=== PATIENT | female | born 1955 | race Caucasian/White ===

== ENCOUNTER 2017-03-31 02:08 | Inpatient (IN) ==
[~2017-03-31 02:08] MED LIST: Naloxone 0.4 MG/ML INJ IVP PRN
[2017-03-31] MEDS ORDERED: *HR* HYDROcodone/Acet 5/325 mg TABLET PO ONE (02:12)
--- NOTE | 2017-03-31 02:14 | Internal Med History&Physical ---
Date of Encounter: 03/31/17 Time of Encounter: 02:14 Assessment and Plan (1) Acute renal failure Current visit: Yes Status: Acute Possibly pre-renal due to volume depletion versus obstructive uropathy. Treat with Intravenous fluid infusion. Renal ultrasound scan. Avoid nephrotoxics. Consider Nephrology consult. Qualifiers: Acute renal failure type: unspecified Qualified Code(s): N17.9 - Acute kidney failure, unspecified (2) UTI (urinary tract infection) Current visit: Yes Status: Acute Urine cultures pending. Emperically treat with ceftriaxone Qualifiers: Urinary tract infection type: site unspecified Hematuria presence: without hematuria Qualified Code(s): N39.0 - Urinary tract infection, site not specified (3) Visual hallucinations Current visit: Yes Status: Acute Could be secondary to UTI / delirium. Will obtain CT head. Monitor (4) Nodule of apex of right lung Current visit: Yes Status: Acute CXR reports Right lung apical nodule. Will request CT chest for further evaluation. Consider pulmonary consult, based on CT chest result. (5) Recurrent falls Current visit: Yes Status: Acute Suspect is due to orthostatic hypotension. Check orthostatic vitals. PT consult (6) DVT prophylaxis Current visit: Yes Status: Acute subcutaneous heparin Internal Medicine - H&P: HPI Chief complaint: Visual hallucinations Admitted From: Emergency Dept Plans for Post Hospital Care: Home History of present illness: Ms. Mkceon is a 61 year old female with Past medical history significant for COPD, GERD, hepatitis (Hepatitis C), hyperlipidemia, hypertension. She was taken to the ER at [facility], with visual hallucinations. She reports seeing he kids in the kitchen and could not make them leave and called the police. Apparently none were seen. Hence she was taken to the ER for evaluation, where she was noted to have creatinine of 4.22. She is admitted to the hospitalist service for further management. She reports multiple falls for a few months and apparently worse now. She feels dizzy and she stands up or tries to walk short distances. She falls but denies LOC. Denies significant injuries or pain at this time. She denies chest pain, shortness of breath, fever, chills, abdominal pain, dysuria, hematuria. She reports that she feels full in the bladder but cannot pass urine. Denies changes to bowel habits. Denies headache or weakness of the extremities. Past Med Surg Social Fam HX - Past Medical History Medical history: arthritis, asthma, COPD, GERD, hepatitis, hyperlipidemia, hypertension, other Psychiatric history: anxiety - Past Surgical History Surgical History: appendectomy, , cholecystectomy, hysterectomy, other - Social History Smoking Status: Current every day smoker Smokeless Tobacco Status: No Alcohol use: occasionally Drug use: none - Family History Mother Name: Kimmie Cline Age: 78 Family Member Ethnicity: Non- Hx Family Cardiac Disorders: Yes Hx Family Respiratory Disorders: Yes Hx Family Cancer: No Hx Family GI Disorders: Yes Hx Family Genitourinary Disorders: Yes Hx Family Endocrine Disorder: No Hx Family Musculoskeletal Disorders: No Hx Family Neuromuscular Disorders: No Hx Family Neurologic Disorders: No Hx Family HEENT Disorders: No Hx Family Autoimmune Disorders: No Hx Family Reproductive Disorders: No Hx Family Psychosocial Disorders: No Hx Family Medical Disorders: No Internal Medicine - H&P: Meds Fenofibrate [Lofibra] 160 mg PO DAILY 03/30/17 [History] LORazepam [Ativan] 1 mg PO QID 03/30/17 [History] Metoprolol [Lopressor] 100 mg PO DAILY 03/30/17 [History] Oxybutynin [Ditropan] 5 mg PO DAILY 03/30/17 [History] Pregabalin [Lyrica] 200 mg PO BID 03/30/17 [History] Allergies butorphanol [From Stadol] Allergy (Verified 01/12/17 11:13) Rash All Systems PM: A 10-system review of systems was performed and is negative for pertinent findings except as documented above in the HPI. - Constitutional Vitals: Temp Pulse Resp BP Pulse Ox 97.4 F L 63 15 123/71 96 03/31/17 01:38 03/31/17 01:38 03/31/17 01:38 03/31/17 01:38 03/31/17 01:38 Exam: General: Not in acute distress at the time of my evaluation HEENT: Oral mucosa is dry. No conjunctival palor or scleral icterus Neck: No obvious neck swellings Lungs: Left basal crackles present Cardiac: Regular rate and rhythm. No significant murmurs Abdomen: Soft, mild suprapubic tenderness. Bowel sounds present Genitourinary: No higginbotham catheter Neurological: Alert and oriented. No gross localizing deficits Psych: Not aggressive or agitated Extremities: no significant leg edema Skin: No generalized rash Internal Med - H&P Results - Labs CBC & Chem 7: 03/31/17 04:20 03/31/17 04:20 - Impressions ITS Impressions Chest X-Ray 03/31/17 02:44 IMPRESSION: Right apical opacity measuring 3.4 x 2.7 cm which needs further investigation. Minimal atelectatic changes left base. RECOMMENDATION: Chest CT to investigate the right upper lobe opacity. D/ /31/2017 07:20:39 Nela Severino MD / tom Interpreting Provider: Nela Severino MD
[2017-03-31] MEDS: 0.9 % Sodium Chloride 1,000 ML IVC SCH ×3 (03:12→20:09)
[2017-03-31] MEDS: Nicotine 14 MG PATCH.TD24 TD SCH (03:12)
[2017-03-31 04:45] LABS: Bilirubin,Urine Negative (Negative); Blood,Urine Negative (Negative); Clarity,Urine Clear (Clear); Glucose,Urine (UA) Normal (Normal); Ketones,Urine Negative (Negative); Leukocyte Esterase,Urine Small (Negative); Nitrite,Urine Positive (Negative); PH,Urine 5.5 pH Units (5.0-8.0); Protein,Urine Negative (Neg-Trace); Specific Gravity,Urine 1.012 (1.010-1.025); Urobilinogen,Urine Normal (Normal)
[2017-03-31 04:46] LABS: Bacteria,Urine None Seen per hpf (None-Few); Hyaline Casts,Urine None Seen per lpf (None-Few); Squamous Epithelial Cell,Urine Moderate per lpf (None-Few); WBC,Urine 0-3 per hpf (0-3)
[2017-03-31 04:47] LABS: Color,Urine Dark Yellow (Yellow)
[2017-03-31 04:55] LABS: Basophils # 0.1 K/mcL (0.0-0.2); Basophils % 0.8 %; Eosinophils # 0.3 K/mcL (0.0-0.6); Eosinophils % 3.5 %; Hematocrit 31.4 % (35.3-44.9); Hemoglobin 10.4 g/dL (11.5-15.4); Immature Granulocytes % 0.9 % (0-4); Lymphocytes # 3.2 K/mcL (0.6-4.6); Lymphocytes % 32.9 %; Mean Corpuscular HGB Conc 33.1 g/dL (31.6-35.5); Mean Corpuscular Hemoglobin 30.1 pg (28.0-33.3); Mean Platelet Volume 12.2 fL (9.4-12.4); Monocytes % 10.6 %; Neutrophils # 4.9 K/mcL (1.6-8.9); Platelet Count 263 K/mcL (140-400); Red Blood Count 3.45 M/mcL (3.82-4.97); Red Cell Distribution Width 13.2 % (11.5-14.5); Segmented Neutrophils % 51.3 %
[2017-03-31 04:57] LABS: Amphetamine Screen,Urine Negative ng/mL (Cutoff=1000); Barbiturate Screen,Urine Negative ng/mL (Cutoff=200); Benzodiazepines Screen,Urine Positive ng/mL (Cutoff=200); Cannabinoid Screen,Urine Negative ng/mL (Cutoff = 50); Cocaine Screen,Urine Negative ng/mL (Cutoff= 300); Opiate Screen,Urine Negative ng/mL (Cutoff=300); Phencyclidine Screen,Urine Negative ng/mL (Cutoff=25)
[2017-03-31 05:15] LABS: Calcium 8.8 mg/dL (8.6-10.8); Magnesium 1.7 mg/dL (1.6-2.6); Phosphorous 4.2 mg/dL (2.3-4.7); Potassium 3.2 mEq/L (3.5-4.5)
[2017-03-31] MEDS: *HR* Heparin 5,000 UNIT/ML VIAL SQ SCH ×3 (05:42→21:46)
--- NOTE | 2017-03-31 16:04 | Event Note ---
Date of Encounter: 03/31/17 Time of Encounter: 16:00 Patient seen and examined at bedside. Resting in bed. Admitted for confused mental status, UTI, ANNAMARIA. Found to have a RUL opacity for which CT chest is ordered for further evaluation. Mental status is improved, no hallucinations reported at this time dysuria resolved at this time renal function improving renal US noted and not acute pathology reported. will follow up on CT chest and head continue IV fluids noted to be hypotensive, BP improved but still low will hold antihypertensives at this time continue to closely monitor. Noted to be hypokalemic: K supplemented
[2017-03-31] MEDS: Pregabalin 75 MG CAPSULE PO SCH (16:10)
[2017-04-01 05:00] LABS: Basophils % 0.4 %; Eosinophils # 0.2 K/mcL (0.0-0.6); Eosinophils % 2.5 %; Hematocrit 31.4 % (35.3-44.9); Hemoglobin 10.5 g/dL (11.5-15.4); Lymphocytes # 2.5 K/mcL (0.6-4.6); Lymphocytes % 27.4 %; Mean Corpuscular HGB Conc 33.4 g/dL (31.6-35.5); Mean Corpuscular Hemoglobin 29.5 pg (28.0-33.3); Mean Corpuscular Volume 88.2 fL (83.0-100.0); Mean Platelet Volume 12.4 fL (9.4-12.4); Monocytes # 0.9 K/mcL (0.0-1.3); Monocytes % 10.1 %; Neutrophils # 5.3 K/mcL (1.6-8.9); Platelet Count 316 K/mcL (140-400); Red Blood Count 3.56 M/mcL (3.82-4.97); Red Cell Distribution Width 13.1 % (11.5-14.5); Segmented Neutrophils % 58.6 %
[2017-04-01 05:18] LABS: Calcium 8.8 mg/dL (8.6-10.8); Magnesium 1.6 mg/dL (1.6-2.6); Phosphorous 2.8 mg/dL (2.3-4.7); Potassium 3.8 mEq/L (3.5-4.5)
[2017-04-01] MEDS: *HR* Heparin 5,000 UNIT/ML VIAL SQ SCH ×3 (05:54→22:48)
[2017-04-01] MEDS: Fenofibrate 54 MG TABLET PO SCH (09:17)
[2017-04-01] MEDS: Nicotine 14 MG PATCH.TD24 TD SCH (09:17)
[2017-04-01] MEDS: Pregabalin 75 MG CAPSULE PO SCH (09:17)
--- NOTE | 2017-04-01 13:48 | Internal Med Progress Note ---
Date of Encounter: 04/01/17 Time of Encounter: 12:05 - Assessment and plan (1) UTI (urinary tract infection) Current Visit: Yes Status: Acute Assessment and plan: Clinically improving Will continue abx for a total of 5 days. mental status AAO x 3 with resolution of hallucinations Qualifiers: Urinary tract infection type: site unspecified Hematuria presence: without hematuria Qualified Code(s): N39.0 - Urinary tract infection, site not specified (2) Acute kidney injury Current Visit: Yes Status: Acute Assessment and plan: Renal function improving home meds revaluated and adjusted according to renal function renal US negative for any acute pathology continue to monitor IV fluids (3) COPD (chronic obstructive pulmonary disease) Current Visit: Yes Status: Acute Assessment and plan: Not in acute exacerbation continue bronchodilator support as needed Qualifiers: COPD type: unspecified COPD Qualified Code(s): J44.9 - Chronic obstructive pulmonary disease, unspecified (4) HTN (hypertension) Current Visit: Yes Status: Acute Assessment and plan: Noted to be hypotensive upon arrival BP within acceptable range despite holding home medications continue to closely monitor will restart home meds as needed Qualifiers: Hypertension type: essential hypertension Qualified Code(s): I10 - Essential (primary) hypertension (5) Smoker Current Visit: Yes Status: Acute Assessment and plan: smoking cessation counseling provided pt not ready to quit at this time nicotine replacement therapy provided (6) DVT prophylaxis Current Visit: Yes Status: Acute Assessment and plan: Heparin SQ (7) Nodule of apex of right lung Current Visit: Yes Status: Acute Assessment and plan: CT chest noted, clinically asymptomatic at this time, pt will need further evaluation as outpatient - Subjective Interval history: Patient seen and examined at bedside. Resting comfortably in bed. AAO x 3. Appears to have social issues at home, but denies any discomfort at this time. - Constitutional Vitals: Temp Pulse Resp BP Pulse Ox 98.5 F 71 16 130/73 96 04/01/17 11:56 04/01/17 11:56 04/01/17 11:56 04/01/17 11:56 04/01/17 11:56 General appearance: Present: A&O X 3, no acute distress - Head Head exam: Present: atraumatic, normocephalic - Eye Eye exam: Present: normal appearance, conjuntiva pink, sclera anicteric - Respiratory Respiratory exam: Present: CTAB. Absent: accessory muscle use, rales, rhonchi, wheezes - Cardiovascular Cardiovascular exam: Present: RRR, +S1, +S2. Absent: diastolic murmur, gallop, rubs, systolic murmur - GI/Abdominal GI/Abdominal exam: Present: normal bowel sounds, soft, no peritoneal signs. Absent: distended, tenderness - Extremities Exam Extremities exam: Present: warm, radial pulses palpable and symetrical. Absent : calf tenderness, cyanotic, pedal edema - Neurological Exam Neurological exam: Present: alert, oriented X3 - Psychiatric Psychiatric exam: Present: normal affect, normal mood Internal Medicine: Result - Labs CBC & Chem 7: 04/01/17 03:42 04/01/17 03:42 Labs: Short CBC 04/01/17 Range/Units 03:42 WBC 9.1 (4.3-11.1) K/mcL Hgb 10.5 L (11.5-15.4) g/dL Hct 31.4 L (35.3-44.9) % Plt Count 316 (140-400) K/mcL Neutrophils # 5.3 (1.6-8.9) K/mcL BMP 04/01/17 03:42 Sodium 139 Potassium 3.8 Chloride 107 Carbon Dioxide 22 BUN 41 H Creatinine 2.52 H Glucose 84 Calcium 8.8 - Impressions Impressions Retroperitoneum Ultrasound 03/31/17 15:00 IMPRESSION: Asymmetric right renal atrophy. Otherwise unremarkable bilateral renal ultrasound with no obstruction. D/ / Yoel Vazquez MD / Yoel Vazquez MD Interpreting Provider: Yoel Vazquez MD Chest CT 03/31/17 15:30 IMPRESSION: 1. Ovoid masslike lesion at the right lung apex, which measures 2.6 x 2.1 x 2.8 cm. There are mild surrounding ground-glass opacities. The differential includes primary lung neoplasm versus atypical infection including fungal etiologies. Further evaluation with close radiographic follow-up versus PET-CT or biopsy should be considered. 2. No evidence of mediastinal lymphadenopathy. Nonspecific 9 mm precarinal lymph node is noted. 3. Coronary atherosclerosis. D/ / 03/31/2017 16:27:34 Odin Han MD / darryn Interpreting Provider: Odin Han MD Head CT 03/31/17 15:30 IMPRESSION: No acute intracranial abnormality. D/ / Damien Crowder MD / Damien Crowder MD Interpreting Provider: Damien Crowder MD Consult Discharge Plan - Plan Referrals: NO,PCP [Primary Care Provider] -
[2017-04-01] MEDS ORDERED: *HR* LORazepam 1 MG TABLET PO SCH (14:12)
[2017-04-01] MEDS: *HR* LORazepam 1 MG TABLET PO PRN ×2 (14:29→20:26)
[2017-04-01] MEDS: 0.9 % Sodium Chloride 1,000 ML IVC SCH ×2 (18:52→23:00)
[2017-04-02] MEDS: *HR* LORazepam 1 MG TABLET PO PRN ×2 (01:23→10:27)
[2017-04-02 03:54] VITALS: BP 148/74
[2017-04-02] MEDS: *HR* Heparin 5,000 UNIT/ML VIAL SQ SCH (05:56)
[2017-04-02 05:59] LABS: Basophils % 0.4 %; Eosinophils # 0.2 K/mcL (0.0-0.6); Eosinophils % 1.9 %; Hemoglobin 10.5 g/dL (11.5-15.4); Immature Granulocytes % 1.3 % (0-4); Lymphocytes # 2.4 K/mcL (0.6-4.6); Lymphocytes % 25.9 %; Mean Corpuscular HGB Conc 33.9 g/dL (31.6-35.5); Mean Corpuscular Hemoglobin 30.4 pg (28.0-33.3); Mean Corpuscular Volume 89.9 fL (83.0-100.0); Mean Platelet Volume 11.9 fL (9.4-12.4); Monocytes # 0.8 K/mcL (0.0-1.3); Monocytes % 8.5 %; Neutrophils # 5.8 K/mcL (1.6-8.9); Platelet Count 273 K/mcL (140-400); Red Blood Count 3.45 M/mcL (3.82-4.97); Red Cell Distribution Width 13.6 % (11.5-14.5)
[2017-04-02 06:15] LABS: Calcium 8.2 mg/dL (8.6-10.8); Magnesium 1.2 mg/dL (1.6-2.6); Potassium 3.5 mEq/L (3.5-4.5)
[2017-04-02] MEDS: 0.9 % Sodium Chloride 1,000 ML IVC SCH (08:03)
[2017-04-02] MEDS: Nicotine 14 MG PATCH.TD24 TD SCH (08:03)
[2017-04-02] MEDS: Pregabalin 75 MG CAPSULE PO SCH (08:04)
[2017-04-02] MEDS: Fenofibrate 54 MG TABLET PO SCH (08:04)
[2017-04-02] MEDS ORDERED: Magnesium Oxide 400 MG TABLET PO SCH (09:00)
[2017-04-02] MEDS ORDERED: amLODIPine 5 MG TABLET PO SCH (09:00)
--- NOTE | 2017-04-02 10:33 | Discharge Summary ---
Date of Encounter: 04/02/17 Time of Encounter: 09:15 - Discharge Diagnosis (1) UTI (urinary tract infection) Priority: Primary Status: Acute Qualifiers: Urinary tract infection type: site unspecified Hematuria presence: without hematuria Qualified Code(s): N39.0 - Urinary tract infection, site not specified (2) Acute kidney injury Priority: Secondary Status: Chronic (3) COPD (chronic obstructive pulmonary disease) Priority: Secondary Status: Chronic Qualifiers: COPD type: unspecified COPD Qualified Code(s): J44.9 - Chronic obstructive pulmonary disease, unspecified (4) HTN (hypertension) Priority: Secondary Status: Chronic Qualifiers: Hypertension type: essential hypertension Qualified Code(s): I10 - Essential (primary) hypertension (5) Smoker Priority: Secondary Status: Chronic (6) DVT prophylaxis Priority: Secondary Status: Acute (7) Nodule of apex of right lung Priority: Secondary Status: Chronic - Discharge Medications Prescriptions: Ciprofloxacin/Ciprofloxa HCl [Cipro Xr 1,000 mg Tablet] 1,000 mg PO DAILY #2 tbmp.24hr Home Medications: Fenofibrate [Lofibra] 160 mg PO DAILY 03/30/17 [History] LORazepam [Ativan] 1 mg PO QID 03/30/17 [History] Oxybutynin [Ditropan] 5 mg PO DAILY 03/30/17 [History] Pregabalin [Lyrica] 200 mg PO BID 03/30/17 [History] Albuterol Neb [Proventil Neb] 2.5 mg IH Q4HR PRN 03/31/17 [History] Albuterol Sulfate [Proair Hfa] 2 puff IH Q4H PRN 03/31/17 [History] Amlodipine [Norvasc] 5 mg PO DAILY 03/31/17 [History] Calcium Carbonate/Vitamin D3 [Calcium 250+D Tablet] 1 tab PO DAILY 03/31/17 [ History] Cyclobenzaprine [Flexeril] 10 mg PO BID 03/31/17 [History] Escitalopram [Lexapro] 20 mg PO DAILY 03/31/17 [History] Labetalol HCl 300 mg PO BID 03/31/17 [History] Lisinopril/Hydrochlorothiazide [Zestoretic 20-12.5 mg Tablet] 1 tab PO BID 03/31 [History] Loratadine [Allergy Relief] 10 mg PO DAILY 03/31/17 [History] Mirtazapine [Remeron] 45 mg PO DAILY 03/31/17 [History] Montelukast [Singulair] 10 mg PO QPM 03/31/17 [History] Pilocarpine HCl [Salagen] 5 mg PO TID 03/31/17 [History] Ciprofloxacin/Ciprofloxa HCl [Cipro Xr 1,000 mg Tablet] 1,000 mg PO DAILY #2 tbmp.24hr 04/02/17 [Rx] Allergies/Adverse Reactions: Allergies butorphanol [From Stadol] Allergy (Verified 01/12/17 11:13) Rash Procedures/tests Complete & Pending: Procedures Performed prior 72 hours Category Date Time Status CT chest w/o contrast [CT chest wo con] [CT] Routine Cat Scan 03/31/17 15:[address] head/brain wo con [CT] Routine Cat Scan 03/31/17 15:30 Completed retroperitoneal ultrasound - limited [US Exams 03/31/17 15:00 Completed retroperitoneal limited] [US] Routine EKG [ECG 12 lead ECG] [ECG] Routine Y 03/31/17 08:05 Ordered Date of admission: 03/31/17 02:08 Primary care physician: PCP NO Consults: 03/31/17 02:12 PT [Consult to Physical Therapy] [CONS] Routine Comment: Evaluate, develop and implement POC Reason for Consult: Falls at home Discharging clinician: Moni Barlow Anticipated date of discharge: 04/02/17 - Patient Status Disposition: Home, Self-Care Condition: Good Functional capacity at discharge: independent ambulation Overall status at discharge: patient is back to baseline - Discharge Instructions Follow Up With: NO,PCP [Primary Care Provider] - Additional Instructions: Please follow up with your primary care physician within five days after your discharge from the hospital. Please continue oral antibiotics as prescribed. please closely monitor your blood pressure at home. Hold your home blood pressure medications (Labetalol and Hydrochlorothiazide/Lisinopril) if your SBP< 120. Please inform your primary care physician about your CT chest findings and they will do further work up. Please follow up with pulmonology in regards to your CT chest findings. Resume your other home medications as prescribed by your primary care physician. - Diet and Activity Activity: resume usual activities as tolerated Diet: low salt diet Hospital course: Ms. Mckeon is a 61 year old female with PMH of COPD, GERD, hepatitis, hyperlipidemia, hypertension who was transferred from [facility] for management of change in mental status with visual hallucinations. Patient was further admitted for urinary tract infection and acute kidney injury. Patient was started on IV fluids, and IV antibiotics. Patient's mental status improved with complete resolution of hallucinations. She was also found to have right upper lobe nodule and further CAT scan was obtained. Patient remained clinically asymptomatic without any fever, cough, or any reported history of weight loss due to which she will obtain further workup for this new imaging finding as an outpatient. Currently she is hemodynamically stable and mental status at baseline. 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 - Time Spent with Patient Total time spent providing and/or coordinating discharge services: Less than 30 minutes - Constitutional Vitals: Temp Pulse Resp BP Pulse Ox 98.2 F 88 18 148/74 94 04/02/17 03:53 04/02/17 03:53 04/02/17 03:53 04/02/17 03:53 04/02/17 03:53 General appearance: Present: A&O X 3, no acute distress - Head Head exam: Present: atraumatic, normocephalic - Eye Eye exam: Present: normal appearance, conjuntiva pink, sclera anicteric - Respiratory Respiratory exam: Present: CTAB. Absent: accessory muscle use, rales, rhonchi, wheezes - Cardiovascular Cardiovascular exam: Present: RRR, +S1, +S2. Absent: diastolic murmur, gallop, rubs, systolic murmur - GI/Abdominal GI/Abdominal exam: Present: normal bowel sounds, soft, no peritoneal signs. Absent: distended, tenderness - Extremities Exam Extremities exam: Present: warm, radial pulses palpable and symetrical. Absent : calf tenderness, cyanotic, pedal edema - Neurological Exam Neurological exam: Present: alert, oriented X3 - Psychiatric Psychiatric exam: Present: normal affect, normal mood
== END 2017-04-02 13:25 | disposition home or self-care (01) | DRG 469 ==
LOC: 2ANU
PROVIDERS: ADMIT Internal Medicine; ATTEND Internal Medicine

== ENCOUNTER 2022-08-14 21:11 | Inpatient (IN) ==
[2022-08-14] MEDS ORDERED: Naloxone 0.4 MG/ML INJ IVP PRN (23:36)
[2022-08-15] MEDS ORDERED: *HR* LORazepam 1 MG TABLET PO PRN ×3 (00:10)
[2022-08-15] MEDS ORDERED: Naloxone 0.4 MG/ML INJ IVP PRN (00:53)
[2022-08-15 01:54] LABS: Creatinine,Urine 37 mg/dL
[2022-08-15 02:02] LABS: Sodium, Urine < 10.0 mEq/L
[2022-08-15 02:58] LABS: ABG Base Excess 0 mEq/L (-2 to 3); ABG HCO3 25 mEq/L (21-27); ABG Oxygen Saturation 94 % (95-98); ABG PCO2 40 mmHg (35-45); ABG PH 7.41 pH Units (7.32-7.45); ABG PO2 68 mmHg (85-104); ABG TCO2 26 mEq/L (20-26); Blood Gas Modality BiLevel; Blood Gas Pressure Support 6 cm H2O
[2022-08-15 03:09] LABS: Adenovirus Not Detected (Not Detect); Bordetella Pertussis Not Detected (Not Detect); Chlamydophila pneumoniae Not Detected (Not Detect); Coronavirus 229E Not Detected (Not Detect); Coronavirus HKU1 Not Detected (Not Detect); Coronavirus NL63 Not Detected (Not Detect); Coronavirus OC43 Not Detected (Not Detect); Human Metapneumovirus Not Detected (Not Detect); Human Rhinovirus/Enterovirus Not Detected (Not Detect); Influenza A Subtype 2009 H1 Not Detected (Not Detect); Influenza B Not Detected (Not Detect); Mycoplasma pneumoniae Not Detected (Not Detect); Parainfluenza Virus 1 Not Detected (Not Detect); Parainfluenza Virus 2 Not Detected (Not Detect); Parainfluenza Virus 3 Not Detected (Not Detect); Parainfluenza Virus 4 Not Detected (Not Detect); Respiratory Syncytial Virus Not Detected (Not Detect); SARS-CoV-2 Not Detected (Not Detect)
[2022-08-15] MEDS ORDERED: *HR* Labetalol 20 MG/4 ML SYRINGE IVP ONE (03:21)
[2022-08-15 03:31] LABS: Basophils % 0.1 %; Eosinophils % 0.1 %; Hematocrit 29.1 % (35.3-44.9); Hemoglobin 9.7 g/dL (11.5-15.4); Immature Granulocytes % 0.7 % (0-4); Lymphocytes # 1.5 K/mcL (0.6-4.6); Lymphocytes % 7.4 %; Mean Corpuscular HGB Conc 33.3 g/dL (31.6-35.5); Mean Corpuscular Volume 81.1 fL (83.0-100.0); Mean Platelet Volume 9.3 fL (9.4-12.4); Monocytes # 1.6 K/mcL (0.0-1.3); Monocytes % 8.1 %; Neutrophils # 16.5 K/mcL (1.6-8.9); Platelet Count 349 K/mcL (140-400); Red Blood Count 3.59 M/mcL (3.82-4.97); Red Cell Distribution Width 14.8 % (11.5-14.5); Segmented Neutrophils % 83.6 %; White Blood Count 19.7 K/mcL (4.3-11.1)
[2022-08-15] MEDS ORDERED: *HR* Labetalol 20 MG/4 ML SYRINGE IVP PRN (03:34)
[2022-08-15 03:38] LABS: INR 1.1; Prothrombin Time 12.6 Seconds (9.4-12.1)
[2022-08-15 03:40] LABS: Activated Partial Thrombo Time 46.7 Seconds (26.0-36.0)
[2022-08-15] MEDS ORDERED: Iopamidol - 370 500 ML MLS IVP ONE ×2 (03:41)
[2022-08-15 03:48] LABS: Iron < 10 mcg/dL (50-170); Transferrin 197 mg/dL (203-362)
[2022-08-15 03:50] LABS: Albumin 3.1 g/dL (3.5-5.7); Albumin/Globulin Ratio 1.2 (1.1-2.2); Bilirubin,Total 0.5 mg/dL (0.3-1.0); Calcium 8.1 mg/dL (8.6-10.3); Globulin 2.6 g/dL (2.4-3.5); Magnesium 1.8 mg/dL (1.6-2.6); Potassium 3.7 mEq/L (3.5-5.1); Total Protein 5.7 g/dL (6.4-8.9)
[2022-08-15] MEDS ORDERED: *HR* Heparin 5,000 UNIT/ML VIAL IVP PRN (03:55)
[2022-08-15] MEDS ORDERED: *HR* Heparin 5,000 UNIT/ML VIAL IVP ONE (03:55)
[2022-08-15] MEDS: Morphine Sulfate 2 MG/ML SYRINGE IVP PRN (03:56)
[2022-08-15] MEDS: Ipratropium/Albuterol Neb 3 ML IH SCH ×6 (04:14→21:33)
[2022-08-15] MEDS ORDERED: 0.9 % Sodium Chloride 1,000 ML IVC SCH (05:00)
[2022-08-15] MEDS ORDERED: *HR* Heparin 5,000 UNIT/ML VIAL SQ SCH (06:00)
[2022-08-15] MEDS: Piperacillin/Tazobactam 3.375 GM in 0.9 % Sodium Chloride Mini Bag 100 ML IVPB SCH ×3 (06:51→19:58)
[2022-08-15] MEDS: Heparin 25,000UNIT/250ML 1/2NS 25,000 UNIT/250 ML IV.SOLN IVC SCH (07:50)
[2022-08-15] MEDS: amLODIPine 5 MG TABLET PO SCH (08:48)
[2022-08-15] MEDS: Metoprolol XL (24 HR) Succ 50 MG TAB.ER.24H PO SCH (08:49)
[2022-08-15] MEDS: Furosemide 40 MG/4 ML VIAL IVP SCH (08:49)
[2022-08-15] MEDS: Folic Acid 1 MG TABLET PO SCH (08:49)
[2022-08-15] MEDS: Vitamin B Complex/Vit C/Vit E 1 EACH TABLET PO SCH (08:49)
[2022-08-15] MEDS: Thiamine (B-1) 100 MG TABLET PO SCH (08:49)
[2022-08-15] MEDS ORDERED: Furosemide 40 MG/4 ML VIAL IVP SCH (09:00)
[2022-08-15] MEDS ORDERED: lisinopriL 20 MG TABLET PO SCH (09:00)
[2022-08-15] MEDS: *HR* LORazepam 2 MG/ML VIAL IVP PRN (19:14)
[2022-08-15] MEDS ORDERED: *HR* LORazepam 2 MG/ML VIAL IVP ONE (19:38)
[2022-08-15] MEDS ORDERED: Dexmedetomidine HCl 400 MCG/100 ML MLS IVC ONE (19:59)
[2022-08-15] MEDS: Dexmedetomidine HCl 400 MCG/100 ML MLS IVC SCH ×2 (20:03→21:05)
[2022-08-15 20:36] LABS: ABG Base Excess 0 mEq/L (-2 to 3); ABG HCO3 25 mEq/L (21-27); ABG Oxygen Saturation 93 % (95-98); ABG PCO2 43 mmHg (35-45); ABG PH 7.38 pH Units (7.32-7.45); ABG PO2 68 mmHg (85-104); ABG TCO2 27 mEq/L (20-26); Blood Gas Modality BiLevel; Blood Gas Pressure Support 5 cm H2O
[2022-08-15] MEDS ORDERED: Furosemide 40 MG/4 ML VIAL IVP ONE (20:36)
[2022-08-15] MEDS: *HR* Heparin 5,000 UNIT/ML VIAL IVP PRN (22:26)
[2022-08-16 03:14] LABS: Hematocrit 27.6 % (35.3-44.9); Hemoglobin 9.1 g/dL (11.5-15.4); Mean Corpuscular Volume 81.9 fL (83.0-100.0); Mean Platelet Volume 9.7 fL (9.4-12.4); Platelet Count 341 K/mcL (140-400); Red Blood Count 3.37 M/mcL (3.82-4.97); Red Cell Distribution Width 15.3 % (11.5-14.5); White Blood Count 19.2 K/mcL (4.3-11.1)
[2022-08-16 03:30] LABS: Calcium 8.5 mg/dL (8.6-10.3); Magnesium 2.1 mg/dL (1.6-2.6); Potassium 3.6 mEq/L (3.5-5.1)
[2022-08-16] MEDS: Piperacillin/Tazobactam 3.375 GM in 0.9 % Sodium Chloride Mini Bag 100 ML IVPB SCH ×3 (03:54→20:55)
[2022-08-16 03:56] LABS: Troponin I 2.24 ng/mL (< 0.04)
[2022-08-16] MEDS: Ipratropium/Albuterol Neb 3 ML IH SCH ×4 (03:59→21:18)
[2022-08-16] MEDS: Dexmedetomidine HCl 400 MCG/100 ML MLS IVC SCH ×2 (05:44→17:00)
[2022-08-16] MEDS: *HR* LORazepam 2 MG/ML VIAL IVP SCH ×3 (06:26→18:05)
[2022-08-16] MEDS: Heparin 25,000UNIT/250ML 1/2NS 25,000 UNIT/250 ML IV.SOLN IVC SCH ×2 (08:40→08:50)
[2022-08-16] MEDS: Furosemide 40 MG/4 ML VIAL IVP SCH ×2 (08:48→16:59)
[2022-08-16] MEDS: *HR* LORazepam 2 MG/ML VIAL IVP PRN ×6 (09:07→22:12)
[2022-08-16] MEDS: Folic Acid 1 MG TABLET PO SCH (10:36)
[2022-08-16] MEDS: Thiamine (B-1) 100 MG TABLET PO SCH (10:36)
[2022-08-16] MEDS: Metoprolol XL (24 HR) Succ 50 MG TAB.ER.24H PO SCH (10:36)
[2022-08-16] MEDS: Vitamin B Complex/Vit C/Vit E 1 EACH TABLET PO SCH (10:36)
[2022-08-16] MEDS: amLODIPine 5 MG TABLET PO SCH (10:36)
[2022-08-16] MEDS: niCARdipine 20 MG/200 ML MLS IVC SCH ×3 (10:51→18:46)
[2022-08-16] MEDS ORDERED: *HR* LORazepam 2 MG/ML VIAL IVP ONE (14:01)
[2022-08-17] MEDS: *HR* LORazepam 2 MG/ML VIAL IVP SCH ×4 (00:06→18:12)
[2022-08-17] MEDS: *HR* Heparin 5,000 UNIT/ML VIAL IVP PRN (00:28)
[2022-08-17] MEDS: *HR* LORazepam 2 MG/ML VIAL IVP PRN ×7 (01:06→21:18)
[2022-08-17] MEDS: Piperacillin/Tazobactam 3.375 GM in 0.9 % Sodium Chloride Mini Bag 100 ML IVPB SCH ×3 (04:03→20:12)
[2022-08-17] MEDS: niCARdipine 20 MG/200 ML MLS IVC SCH ×5 (04:06→23:03)
[2022-08-17] MEDS: Ipratropium/Albuterol Neb 3 ML IH SCH ×4 (04:45→21:23)
[2022-08-17 05:09] LABS: VBG HCO3 27 mEq/L (21-27); VBG PCO2 55 mmHg (41-51); VBG PH 7.31 pH Units (7.32-7.42); VBG PO2 84 mmHg (25-50)
[2022-08-17 05:20] LABS: Hematocrit 26.6 % (35.3-44.9); Hemoglobin 8.4 g/dL (11.5-15.4); Mean Corpuscular HGB Conc 31.6 g/dL (31.6-35.5); Mean Corpuscular Hemoglobin 26.3 pg (28.0-33.3); Mean Corpuscular Volume 83.4 fL (83.0-100.0); Mean Platelet Volume 9.5 fL (9.4-12.4); Platelet Count 359 K/mcL (140-400); Red Blood Count 3.19 M/mcL (3.82-4.97); Red Cell Distribution Width 15.9 % (11.5-14.5); White Blood Count 13.9 K/mcL (4.3-11.1)
[2022-08-17 05:38] LABS: Calcium 8.8 mg/dL (8.6-10.3); Potassium 3.4 mEq/L (3.5-5.1)
[2022-08-17] MEDS: Dexmedetomidine HCl 400 MCG/100 ML MLS IVC SCH ×4 (06:24→21:01)
[2022-08-17] MEDS: Vitamin B Complex/Vit C/Vit E 1 EACH TABLET PO SCH (10:18)
[2022-08-17] MEDS: amLODIPine 5 MG TABLET PO SCH (10:18)
[2022-08-17] MEDS: Thiamine (B-1) 100 MG TABLET PO SCH (10:18)
[2022-08-17] MEDS: Metoprolol XL (24 HR) Succ 50 MG TAB.ER.24H PO SCH (10:18)
[2022-08-17] MEDS: Folic Acid 1 MG TABLET PO SCH (10:18)
[2022-08-17] MEDS: Furosemide 40 MG/4 ML VIAL IVP SCH ×2 (10:43→16:07)
[2022-08-17] MEDS ORDERED: *HR* Dextrose 50 % in Water (Syg) 50 ML SYRINGE IVP PRN (11:35)
[2022-08-17] MEDS: Heparin 25,000UNIT/250ML 1/2NS 25,000 UNIT/250 ML IV.SOLN IVC SCH (11:35)
[2022-08-17] MEDS ORDERED: Dextrose Gel 15 GM/37.5 ML TUBE PO PRN ×2 (11:35)
[2022-08-17] MEDS ORDERED: D5% in Water 1,000 ML IVC PRN (11:35)
[2022-08-17] MEDS: Insulin LISPRO 300 UNITS/3 ML VIAL SUBQ SCH ×2 (15:40→17:30)
[2022-08-17] MEDS: OXcarbazepine 150 MG TABLET PO SCH ×2 (17:28→19:08)
[2022-08-17] MEDS: Budesonide/Formoterol 160/4.5 1 PUFF INH IH SCH (21:24)
[2022-08-18] MEDS: Insulin LISPRO 300 UNITS/3 ML VIAL SUBQ SCH ×4 (00:09→19:49)
[2022-08-18] MEDS: Dexmedetomidine HCl 400 MCG/100 ML MLS IVC SCH ×6 (00:31→19:01)
[2022-08-18] MEDS: niCARdipine 20 MG/200 ML MLS IVC SCH ×8 (02:54→22:32)
[2022-08-18] MEDS: *HR* LORazepam 2 MG/ML VIAL IVP SCH ×4 (02:59→20:49)
[2022-08-18] MEDS: Ipratropium/Albuterol Neb 3 ML IH SCH ×4 (04:31→22:11)
[2022-08-18] MEDS: Piperacillin/Tazobactam 3.375 GM in 0.9 % Sodium Chloride Mini Bag 100 ML IVPB SCH ×3 (05:56→20:48)
[2022-08-18] MEDS: Furosemide 40 MG/4 ML VIAL IVP SCH ×2 (08:08→17:20)
[2022-08-18] MEDS: *HR* LORazepam 2 MG/ML VIAL IVP PRN ×3 (08:09→19:14)
[2022-08-18] MEDS: Vitamin B Complex/Vit C/Vit E 1 EACH TABLET PO SCH (08:37)
[2022-08-18] MEDS: Metoprolol XL (24 HR) Succ 50 MG TAB.ER.24H PO SCH (08:37)
[2022-08-18] MEDS: Cholecalciferol (D-3) 1,000 UNIT (25MCG) TABLET PO SCH (08:37)
[2022-08-18] MEDS: Thiamine (B-1) 100 MG TABLET PO SCH (08:37)
[2022-08-18] MEDS: Folic Acid 1 MG TABLET PO SCH (08:37)
[2022-08-18] MEDS: amLODIPine 5 MG TABLET PO SCH (08:37)
[2022-08-18] MEDS: OXcarbazepine 150 MG TABLET PO SCH ×3 (08:37→19:50)
[2022-08-18] MEDS: Budesonide/Formoterol 160/4.5 1 PUFF INH IH SCH ×2 (09:42→22:11)
[2022-08-18] MEDS: Heparin 25,000UNIT/250ML 1/2NS 25,000 UNIT/250 ML IV.SOLN IVC SCH (11:19)
[2022-08-18 14:13] LABS: VBG HCO3 25 mEq/L (21-27); VBG PCO2 42 mmHg (41-51); VBG PH 7.38 pH Units (7.32-7.42); VBG PO2 96 mmHg (25-50)
[2022-08-18 14:27] LABS: Basophils % 0.4 %; Eosinophils # 0.4 K/mcL (0.0-0.6); Eosinophils % 4.1 %; Hematocrit 25.6 % (35.3-44.9); Hemoglobin 8.1 g/dL (11.5-15.4); Immature Granulocytes % 0.6 % (0-4); Lymphocytes % 21.7 %; Mean Corpuscular HGB Conc 31.6 g/dL (31.6-35.5); Mean Corpuscular Hemoglobin 26.2 pg (28.0-33.3); Mean Corpuscular Volume 82.8 fL (83.0-100.0); Mean Platelet Volume 9.5 fL (9.4-12.4); Monocytes # 1.2 K/mcL (0.0-1.3); Neutrophils # 5.6 K/mcL (1.6-8.9); Platelet Count 354 K/mcL (140-400); Red Blood Count 3.09 M/mcL (3.82-4.97); Segmented Neutrophils % 60.2 %; White Blood Count 9.3 K/mcL (4.3-11.1)
[2022-08-18 15:22] LABS: Calcium 8.9 mg/dL (8.6-10.3); Magnesium 1.9 mg/dL (1.6-2.6); Phosphorous 3.4 mg/dL (2.7-4.5); Potassium 3.2 mEq/L (3.5-5.1)
[2022-08-18] MEDS: *HR* Heparin 5,000 UNIT/ML VIAL SQ SCH (17:21)
[2022-08-19] MEDS: *HR* LORazepam 2 MG/ML VIAL IVP PRN ×3 (00:03→21:37)
[2022-08-19] MEDS: Insulin LISPRO 300 UNITS/3 ML VIAL SUBQ SCH ×4 (00:06→19:14)
[2022-08-19] MEDS: Dexmedetomidine HCl 400 MCG/100 ML MLS IVC SCH ×4 (00:20→18:47)
[2022-08-19] MEDS: niCARdipine 20 MG/200 ML MLS IVC SCH ×5 (01:55→18:36)
[2022-08-19] MEDS: Ipratropium/Albuterol Neb 3 ML IH SCH ×4 (04:29→20:35)
[2022-08-19] MEDS: *HR* LORazepam 2 MG/ML VIAL IVP SCH ×4 (04:56→19:36)
[2022-08-19] MEDS: *HR* Heparin 5,000 UNIT/ML VIAL SQ SCH ×2 (04:56→17:07)
[2022-08-19] MEDS: Piperacillin/Tazobactam 3.375 GM in 0.9 % Sodium Chloride Mini Bag 100 ML IVPB SCH ×3 (04:57→19:37)
[2022-08-19 05:17] LABS: Hematocrit 24.9 % (35.3-44.9); Mean Corpuscular HGB Conc 32.1 g/dL (31.6-35.5); Mean Corpuscular Hemoglobin 26.6 pg (28.0-33.3); Mean Corpuscular Volume 82.7 fL (83.0-100.0); Mean Platelet Volume 9.1 fL (9.4-12.4); Platelet Count 334 K/mcL (140-400); Red Blood Count 3.01 M/mcL (3.82-4.97); Red Cell Distribution Width 15.2 % (11.5-14.5); White Blood Count 8.2 K/mcL (4.3-11.1)
[2022-08-19 05:35] LABS: Calcium 8.7 mg/dL (8.6-10.3); Magnesium 1.9 mg/dL (1.6-2.6); Potassium 3.1 mEq/L (3.5-5.1)
[2022-08-19] MEDS: Furosemide 40 MG/4 ML VIAL IVP SCH (08:16)
[2022-08-19] MEDS: OXcarbazepine 150 MG TABLET PO SCH ×3 (08:18→19:37)
[2022-08-19] MEDS: Folic Acid 1 MG TABLET PO SCH (08:18)
[2022-08-19] MEDS: Thiamine (B-1) 100 MG TABLET PO SCH (08:18)
[2022-08-19] MEDS: Metoprolol XL (24 HR) Succ 50 MG TAB.ER.24H PO SCH (08:18)
[2022-08-19] MEDS: amLODIPine 5 MG TABLET PO SCH (08:18)
[2022-08-19] MEDS: Cholecalciferol (D-3) 1,000 UNIT (25MCG) TABLET PO SCH (08:18)
[2022-08-19] MEDS: Vitamin B Complex/Vit C/Vit E 1 EACH TABLET PO SCH (08:18)
[2022-08-19] MEDS ORDERED: Thiamine (B-1) 200 MG in 0.9 % Sodium Chloride 50 ML IVPB STA (08:58)
[2022-08-19] MEDS: Budesonide/Formoterol 160/4.5 1 PUFF INH IH SCH ×2 (10:43→20:36)
[2022-08-19] MEDS: *HR* Metoprolol 5 MG/5 ML VIAL IVP SCH ×2 (11:30→17:07)
[2022-08-19] MEDS ORDERED: *HR* Labetalol 20 MG/4 ML SYRINGE IVP ONE (20:12)
[2022-08-20] MEDS: *HR* Metoprolol 5 MG/5 ML VIAL IVP SCH ×5 (00:06→23:18)
[2022-08-20] MEDS: Insulin LISPRO 300 UNITS/3 ML VIAL SUBQ SCH ×5 (00:09→23:18)
[2022-08-20] MEDS: Ondansetron ODT 4 MG TAB.RAPDIS SL PRN (01:47)
[2022-08-20] MEDS: niCARdipine 20 MG/200 ML MLS IVC SCH ×6 (02:29→19:41)
[2022-08-20] MEDS: *HR* LORazepam 2 MG/ML VIAL IVP SCH ×2 (02:29→10:14)
[2022-08-20] MEDS: Ipratropium/Albuterol Neb 3 ML IH SCH ×4 (04:11→22:33)
[2022-08-20] MEDS: Piperacillin/Tazobactam 3.375 GM in 0.9 % Sodium Chloride Mini Bag 100 ML IVPB SCH ×3 (04:15→19:40)
[2022-08-20] MEDS: Dexmedetomidine HCl 400 MCG/100 ML MLS IVC SCH ×3 (04:21→17:01)
[2022-08-20 04:56] LABS: Hematocrit 27.2 % (35.3-44.9); Hemoglobin 8.7 g/dL (11.5-15.4); Mean Corpuscular Hemoglobin 26.5 pg (28.0-33.3); Mean Corpuscular Volume 82.9 fL (83.0-100.0); Mean Platelet Volume 9.3 fL (9.4-12.4); Platelet Count 395 K/mcL (140-400); Red Blood Count 3.28 M/mcL (3.82-4.97); Red Cell Distribution Width 15.5 % (11.5-14.5)
[2022-08-20 05:13] LABS: Magnesium 1.9 mg/dL (1.6-2.6); Potassium 3.3 mEq/L (3.5-5.1)
[2022-08-20] MEDS: *HR* Heparin 5,000 UNIT/ML VIAL SQ SCH ×2 (05:54→18:01)
[2022-08-20] MEDS: Thiamine (B-1) 100 MG in 0.9 % Sodium Chloride 50 ML IVPB SCH (08:14)
[2022-08-20] MEDS: Budesonide/Formoterol 160/4.5 1 PUFF INH IH SCH ×2 (09:52→22:33)
[2022-08-20] MEDS: Cholecalciferol (D-3) 1,000 UNIT (25MCG) TABLET PO SCH (10:13)
[2022-08-20] MEDS: amLODIPine 5 MG TABLET PO SCH (10:13)
[2022-08-20] MEDS: OXcarbazepine 150 MG TABLET PO SCH ×3 (10:14→19:40)
[2022-08-20] MEDS: Vitamin B Complex/Vit C/Vit E 1 EACH TABLET PO SCH (10:14)
[2022-08-20] MEDS: Metoprolol XL (24 HR) Succ 50 MG TAB.ER.24H PO SCH (10:14)
[2022-08-20] MEDS: Folic Acid 1 MG TABLET PO SCH (10:14)
[2022-08-20] MEDS ORDERED: Cyanocobalamin (B-12) 1,000 MCG/ML VIAL IM ONE ×2 (10:26→14:45)
[2022-08-20] MEDS: Aspirin 81 MG TAB.CHEW PO SCH (13:54)
[2022-08-20] MEDS: Melatonin 3 MG TABLET PO PRN (19:40)
[2022-08-20] MEDS ORDERED: OLANZapine 10 MG VIAL IM ONE (21:32)
[2022-08-21] MEDS: Dexmedetomidine HCl 400 MCG/100 ML MLS IVC SCH ×2 (02:03→09:53)
[2022-08-21] MEDS: niCARdipine 20 MG/200 ML MLS IVC SCH ×6 (02:07→23:23)
[2022-08-21 02:45] LABS: Hematocrit 26.9 % (35.3-44.9); Hemoglobin 8.4 g/dL (11.5-15.4); Mean Corpuscular HGB Conc 31.2 g/dL (31.6-35.5); Mean Corpuscular Hemoglobin 26.5 pg (28.0-33.3); Mean Corpuscular Volume 84.9 fL (83.0-100.0); Mean Platelet Volume 9.4 fL (9.4-12.4); Platelet Count 372 K/mcL (140-400); Red Blood Count 3.17 M/mcL (3.82-4.97); Red Cell Distribution Width 15.7 % (11.5-14.5); White Blood Count 12.5 K/mcL (4.3-11.1)
[2022-08-21 03:04] LABS: Calcium 8.7 mg/dL (8.6-10.3); Potassium 4.2 mEq/L (3.5-5.1)
[2022-08-21] MEDS: Piperacillin/Tazobactam 3.375 GM in 0.9 % Sodium Chloride Mini Bag 100 ML IVPB SCH ×3 (03:58→19:27)
[2022-08-21] MEDS: Ipratropium/Albuterol Neb 3 ML IH SCH ×4 (04:14→22:51)
[2022-08-21] MEDS: *HR* Metoprolol 5 MG/5 ML VIAL IVP SCH ×4 (05:28→23:25)
[2022-08-21] MEDS: *HR* Heparin 5,000 UNIT/ML VIAL SQ SCH ×2 (05:30→17:13)
[2022-08-21] MEDS: Insulin LISPRO 300 UNITS/3 ML VIAL SUBQ SCH ×3 (06:05→17:13)
[2022-08-21] MEDS: Ondansetron ODT 4 MG TAB.RAPDIS SL PRN (08:35)
[2022-08-21] MEDS: Aspirin 81 MG TAB.CHEW PO SCH (09:53)
[2022-08-21] MEDS: Metoprolol XL (24 HR) Succ 50 MG TAB.ER.24H PO SCH (09:53)
[2022-08-21] MEDS: OXcarbazepine 150 MG TABLET PO SCH ×3 (09:53→19:29)
[2022-08-21] MEDS: amLODIPine 5 MG TABLET PO SCH (09:53)
[2022-08-21] MEDS: Folic Acid 1 MG TABLET PO SCH ×2 (09:54→10:32)
[2022-08-21] MEDS: Vitamin B Complex/Vit C/Vit E 1 EACH TABLET PO SCH ×2 (09:54→10:32)
[2022-08-21] MEDS: Cholecalciferol (D-3) 1,000 UNIT (25MCG) TABLET PO SCH ×2 (09:54→10:32)
[2022-08-21] MEDS: Cyanocobalamin (B-12) 1,000 MCG TABLET PO SCH ×2 (09:54→10:32)
[2022-08-21] MEDS ORDERED: Nicotine 2 MG GUM BC PRN (10:34)
[2022-08-21] MEDS: Budesonide/Formoterol 160/4.5 1 PUFF INH IH SCH ×2 (10:36→22:51)
[2022-08-21] MEDS: Nicotine 21 MG PATCH.TD24 TD SCH (10:55)
[2022-08-21] MEDS: Thiamine (B-1) 100 MG in 0.9 % Sodium Chloride 50 ML IVPB SCH (10:56)
[2022-08-21] MEDS ORDERED: *HR* LORazepam 2 MG/ML VIAL IVP PRN (11:43)
[2022-08-21] MEDS ORDERED: *HR* LORazepam 1 MG TABLET PO PRN ×2 (11:43)
[2022-08-21] MEDS: Acetaminophen 325 MG TABLET PO PRN (19:28)
[2022-08-21] MEDS: Melatonin 3 MG TABLET PO PRN (19:29)
[2022-08-21] MEDS: *HR* LORazepam 2 MG/ML VIAL IVP PRN ×2 (20:38→22:34)
[2022-08-22] MEDS: Insulin LISPRO 300 UNITS/3 ML VIAL SUBQ SCH ×2 (00:35→06:12)
[2022-08-22] MEDS ORDERED: *HR* Labetalol 20 MG/4 ML SYRINGE IVP ONE (00:37)
[2022-08-22] MEDS: Acetaminophen 325 MG TABLET PO PRN (02:01)
[2022-08-22] MEDS: niCARdipine 20 MG/200 ML MLS IVC SCH ×6 (03:28→23:19)
[2022-08-22] MEDS: *HR* LORazepam 2 MG/ML VIAL IVP PRN ×2 (03:34→07:44)
[2022-08-22] MEDS: Piperacillin/Tazobactam 3.375 GM in 0.9 % Sodium Chloride Mini Bag 100 ML IVPB SCH ×3 (03:35→19:42)
[2022-08-22] MEDS: Ipratropium/Albuterol Neb 3 ML IH SCH ×4 (04:16→21:50)
[2022-08-22] MEDS: *HR* Metoprolol 5 MG/5 ML VIAL IVP SCH ×4 (06:12→23:35)
[2022-08-22] MEDS: *HR* Heparin 5,000 UNIT/ML VIAL SQ SCH ×2 (06:12→17:00)
[2022-08-22] MEDS: OXcarbazepine 150 MG TABLET PO SCH ×3 (07:30→19:42)
[2022-08-22] MEDS: Folic Acid 1 MG TABLET PO SCH (07:30)
[2022-08-22] MEDS: amLODIPine 5 MG TABLET PO SCH (07:30)
[2022-08-22] MEDS: Vitamin B Complex/Vit C/Vit E 1 EACH TABLET PO SCH (07:30)
[2022-08-22] MEDS: Cyanocobalamin (B-12) 1,000 MCG TABLET PO SCH (07:30)
[2022-08-22] MEDS: Metoprolol XL (24 HR) Succ 50 MG TAB.ER.24H PO SCH (07:30)
[2022-08-22] MEDS: Aspirin 81 MG TAB.CHEW PO SCH (07:31)
[2022-08-22] MEDS: Nicotine 21 MG PATCH.TD24 TD SCH (07:31)
[2022-08-22] MEDS: Cholecalciferol (D-3) 1,000 UNIT (25MCG) TABLET PO SCH (07:31)
[2022-08-22] MEDS: Thiamine (B-1) 100 MG in 0.9 % Sodium Chloride 50 ML IVPB SCH (07:44)
[2022-08-22 09:08] LABS: Hematocrit 29.9 % (35.3-44.9); Hemoglobin 9.5 g/dL (11.5-15.4); Mean Corpuscular HGB Conc 31.8 g/dL (31.6-35.5); Mean Corpuscular Hemoglobin 27.1 pg (28.0-33.3); Mean Corpuscular Volume 85.2 fL (83.0-100.0); Mean Platelet Volume 9.4 fL (9.4-12.4); Platelet Count 487 K/mcL (140-400); Red Blood Count 3.51 M/mcL (3.82-4.97); Red Cell Distribution Width 16.2 % (11.5-14.5); White Blood Count 11.9 K/mcL (4.3-11.1)
[2022-08-22 09:30] LABS: Magnesium 1.9 mg/dL (1.6-2.6); Phosphorous 3.3 mg/dL (2.7-4.5)
[2022-08-22 09:31] LABS: Calcium 9.1 mg/dL (8.6-10.3); Potassium 3.2 mEq/L (3.5-5.1)
[2022-08-22] MEDS: Budesonide/Formoterol 160/4.5 1 PUFF INH IH SCH ×2 (10:41→21:50)
[2022-08-22] MEDS: Morphine Sulfate 2 MG/ML SYRINGE IVP PRN (13:55)
[2022-08-22] MEDS: Ondansetron ODT 4 MG TAB.RAPDIS SL PRN (17:00)
[2022-08-22] MEDS ORDERED: *HR* LORazepam 2 MG/ML VIAL IVP ONE (18:31)
[2022-08-22] MEDS: *HR* LORazepam 1 MG TABLET PO PRN (23:35)
[2022-08-22] MEDS: Melatonin 3 MG TABLET PO PRN (23:35)
[2022-08-23] MEDS: Ipratropium/Albuterol Neb 3 ML IH SCH ×4 (04:14→21:27)
[2022-08-23] MEDS: Piperacillin/Tazobactam 3.375 GM in 0.9 % Sodium Chloride Mini Bag 100 ML IVPB SCH ×3 (04:58→20:12)
[2022-08-23] MEDS: *HR* Heparin 5,000 UNIT/ML VIAL SQ SCH ×2 (05:00→18:53)
[2022-08-23] MEDS: *HR* Metoprolol 5 MG/5 ML VIAL IVP SCH ×4 (05:00→23:14)
[2022-08-23] MEDS: niCARdipine 20 MG/200 ML MLS IVC SCH ×2 (05:01→05:07)
[2022-08-23 05:33] LABS: Hematocrit 29.8 % (35.3-44.9); Hemoglobin 9.2 g/dL (11.5-15.4); Mean Corpuscular HGB Conc 30.9 g/dL (31.6-35.5); Mean Corpuscular Hemoglobin 26.1 pg (28.0-33.3); Mean Corpuscular Volume 84.7 fL (83.0-100.0); Mean Platelet Volume 9.5 fL (9.4-12.4); Platelet Count 571 K/mcL (140-400); Red Blood Count 3.52 M/mcL (3.82-4.97); Red Cell Distribution Width 16.5 % (11.5-14.5); White Blood Count 12.1 K/mcL (4.3-11.1)
[2022-08-23 06:10] LABS: Calcium 9.5 mg/dL (8.6-10.3); Potassium 3.6 mEq/L (3.5-5.1)
[2022-08-23] MEDS ORDERED: *HR* Labetalol 20 MG/4 ML SYRINGE IVP ONE ×2 (06:50→20:35)
[2022-08-23] MEDS: Budesonide/Formoterol 160/4.5 1 PUFF INH IH SCH ×2 (09:31→21:27)
[2022-08-23] MEDS: Nicotine 21 MG PATCH.TD24 TD SCH (09:31)
[2022-08-23] MEDS: Folic Acid 1 MG TABLET PO SCH (09:32)
[2022-08-23] MEDS: Cholecalciferol (D-3) 1,000 UNIT (25MCG) TABLET PO SCH (09:32)
[2022-08-23] MEDS: Vitamin B Complex/Vit C/Vit E 1 EACH TABLET PO SCH (09:32)
[2022-08-23] MEDS: Cyanocobalamin (B-12) 1,000 MCG TABLET PO SCH (09:32)
[2022-08-23] MEDS: amLODIPine 5 MG TABLET PO SCH (09:32)
[2022-08-23] MEDS: hydrALAZINE 25 MG TABLET PO SCH ×3 (09:32→23:14)
[2022-08-23] MEDS: OXcarbazepine 150 MG TABLET PO SCH ×3 (09:33→20:13)
[2022-08-23] MEDS: Aspirin 81 MG TAB.CHEW PO SCH (09:33)
[2022-08-23] MEDS: Thiamine (B-1) 100 MG TABLET PO SCH (09:33)
[2022-08-23] MEDS: Metoprolol XL (24 HR) Succ 50 MG TAB.ER.24H PO SCH (09:33)
[2022-08-23] MEDS: QUEtiapine Fumarate 25 MG TABLET PO SCH (20:13)
[2022-08-24] MEDS: *HR* LORazepam 1 MG TABLET PO PRN (00:29)
[2022-08-24 03:25] LABS: Hematocrit 27.8 % (35.3-44.9); Hemoglobin 8.5 g/dL (11.5-15.4); Mean Corpuscular HGB Conc 30.6 g/dL (31.6-35.5); Mean Corpuscular Hemoglobin 25.9 pg (28.0-33.3); Mean Corpuscular Volume 84.8 fL (83.0-100.0); Mean Platelet Volume 9.2 fL (9.4-12.4); Platelet Count 460 K/mcL (140-400); Red Blood Count 3.28 M/mcL (3.82-4.97); Red Cell Distribution Width 16.7 % (11.5-14.5); White Blood Count 11.4 K/mcL (4.3-11.1)
[2022-08-24 03:45] LABS: Calcium 9.3 mg/dL (8.6-10.3); Magnesium 1.9 mg/dL (1.6-2.6); Phosphorous 3.6 mg/dL (2.7-4.5); Potassium 3.7 mEq/L (3.5-5.1)
[2022-08-24] MEDS: Ipratropium/Albuterol Neb 3 ML IH SCH ×4 (04:02→21:29)
[2022-08-24] MEDS: *HR* Heparin 5,000 UNIT/ML VIAL SQ SCH ×2 (04:52→18:31)
[2022-08-24] MEDS: Piperacillin/Tazobactam 3.375 GM in 0.9 % Sodium Chloride Mini Bag 100 ML IVPB SCH ×3 (04:53→20:23)
[2022-08-24] MEDS: *HR* Metoprolol 5 MG/5 ML VIAL IVP SCH ×3 (04:53→18:31)
[2022-08-24] MEDS: Vitamin B Complex/Vit C/Vit E 1 EACH TABLET PO SCH (10:12)
[2022-08-24] MEDS: Nicotine 21 MG PATCH.TD24 TD SCH (10:12)
[2022-08-24] MEDS: Cyanocobalamin (B-12) 1,000 MCG TABLET PO SCH (10:12)
[2022-08-24] MEDS: Thiamine (B-1) 100 MG TABLET PO SCH (10:12)
[2022-08-24] MEDS: amLODIPine 5 MG TABLET PO SCH (10:13)
[2022-08-24] MEDS: hydrALAZINE 25 MG TABLET PO SCH ×2 (10:13→18:31)
[2022-08-24] MEDS: OXcarbazepine 150 MG TABLET PO SCH ×3 (10:13→20:24)
[2022-08-24] MEDS: Folic Acid 1 MG TABLET PO SCH (10:14)
[2022-08-24] MEDS: Cholecalciferol (D-3) 1,000 UNIT (25MCG) TABLET PO SCH (10:14)
[2022-08-24] MEDS: Aspirin 81 MG TAB.CHEW PO SCH (10:14)
[2022-08-24] MEDS: Metoprolol XL (24 HR) Succ 50 MG TAB.ER.24H PO SCH (10:14)
[2022-08-24] MEDS: Budesonide/Formoterol 160/4.5 1 PUFF INH IH SCH ×2 (11:00→21:29)
[2022-08-24] MEDS: Melatonin 3 MG TABLET PO PRN (20:24)
[2022-08-24] MEDS: Dexmedetomidine HCl 400 MCG/100 ML MLS IVC SCH (20:24)
[2022-08-24] MEDS: QUEtiapine Fumarate 25 MG TABLET PO SCH (20:24)
[2022-08-25] MEDS: *HR* Metoprolol 5 MG/5 ML VIAL IVP SCH ×3 (00:20→17:39)
[2022-08-25] MEDS: hydrALAZINE 25 MG TABLET PO SCH ×4 (00:20→23:49)
[2022-08-25] MEDS: Piperacillin/Tazobactam 3.375 GM in 0.9 % Sodium Chloride Mini Bag 100 ML IVPB SCH ×2 (03:31→17:39)
[2022-08-25 04:14] LABS: Hematocrit 28.3 % (35.3-44.9); Hemoglobin 8.8 g/dL (11.5-15.4); Mean Corpuscular HGB Conc 31.1 g/dL (31.6-35.5); Mean Corpuscular Hemoglobin 26.3 pg (28.0-33.3); Mean Corpuscular Volume 84.5 fL (83.0-100.0); Mean Platelet Volume 9.6 fL (9.4-12.4); Platelet Count 499 K/mcL (140-400); Red Blood Count 3.35 M/mcL (3.82-4.97); White Blood Count 10.5 K/mcL (4.3-11.1)
[2022-08-25 04:35] LABS: Calcium 9.3 mg/dL (8.6-10.3); Magnesium 2.1 mg/dL (1.6-2.6); Phosphorous 4.7 mg/dL (2.7-4.5); Potassium 3.9 mEq/L (3.5-5.1)
[2022-08-25] MEDS: Ipratropium/Albuterol Neb 3 ML IH SCH ×4 (04:49→22:40)
[2022-08-25] MEDS: *HR* Heparin 5,000 UNIT/ML VIAL SQ SCH ×2 (05:14→16:29)
[2022-08-25] MEDS: Metoprolol XL (24 HR) Succ 50 MG TAB.ER.24H PO SCH (09:18)
[2022-08-25] MEDS: Vitamin B Complex/Vit C/Vit E 1 EACH TABLET PO SCH (09:19)
[2022-08-25] MEDS: Aspirin 81 MG TAB.CHEW PO SCH (09:19)
[2022-08-25] MEDS: OXcarbazepine 150 MG TABLET PO SCH ×3 (09:19→21:03)
[2022-08-25] MEDS: Thiamine (B-1) 100 MG TABLET PO SCH (09:19)
[2022-08-25] MEDS: Folic Acid 1 MG TABLET PO SCH (09:19)
[2022-08-25] MEDS: Cyanocobalamin (B-12) 1,000 MCG TABLET PO SCH (09:19)
[2022-08-25] MEDS: Cholecalciferol (D-3) 1,000 UNIT (25MCG) TABLET PO SCH (09:19)
[2022-08-25] MEDS: amLODIPine 5 MG TABLET PO SCH (09:20)
[2022-08-25] MEDS: Nicotine 21 MG PATCH.TD24 TD SCH (09:20)
[2022-08-25] MEDS: Budesonide/Formoterol 160/4.5 1 PUFF INH IH SCH ×2 (09:38→22:39)
[2022-08-25] MEDS: QUEtiapine Fumarate 25 MG TABLET PO SCH (21:03)
[2022-08-26 03:44] LABS: Hematocrit 29.8 % (35.3-44.9); Hemoglobin 9.4 g/dL (11.5-15.4); Mean Corpuscular HGB Conc 31.5 g/dL (31.6-35.5); Mean Corpuscular Hemoglobin 26.5 pg (28.0-33.3); Mean Corpuscular Volume 83.9 fL (83.0-100.0); Mean Platelet Volume 9.5 fL (9.4-12.4); Platelet Count 532 K/mcL (140-400); Red Blood Count 3.55 M/mcL (3.82-4.97); Red Cell Distribution Width 16.7 % (11.5-14.5); White Blood Count 10.8 K/mcL (4.3-11.1)
[2022-08-26] MEDS: Ipratropium/Albuterol Neb 3 ML IH SCH ×2 (04:08→10:31)
[2022-08-26] MEDS: *HR* Heparin 5,000 UNIT/ML VIAL SQ SCH (06:14)
[2022-08-26] MEDS: amLODIPine 5 MG TABLET PO SCH (10:24)
[2022-08-26] MEDS: Aspirin 81 MG TAB.CHEW PO SCH (10:25)
[2022-08-26] MEDS: Folic Acid 1 MG TABLET PO SCH (10:25)
[2022-08-26] MEDS: OXcarbazepine 150 MG TABLET PO SCH (10:25)
[2022-08-26] MEDS: Vitamin B Complex/Vit C/Vit E 1 EACH TABLET PO SCH (10:25)
[2022-08-26] MEDS: Nicotine 21 MG PATCH.TD24 TD SCH (10:25)
[2022-08-26] MEDS: Thiamine (B-1) 100 MG TABLET PO SCH (10:25)
[2022-08-26] MEDS: Cyanocobalamin (B-12) 1,000 MCG TABLET PO SCH (10:25)
[2022-08-26] MEDS: Metoprolol XL (24 HR) Succ 50 MG TAB.ER.24H PO SCH (10:25)
[2022-08-26] MEDS: Cholecalciferol (D-3) 1,000 UNIT (25MCG) TABLET PO SCH (10:25)
[2022-08-26] MEDS: Budesonide/Formoterol 160/4.5 1 PUFF INH IH SCH (10:31)
[2022-08-26] MEDS: hydrALAZINE 25 MG TABLET PO SCH (10:33)
[2022-08-26 11:08] LABS: Adenovirus Not Detected (Not Detect); Bordetella Pertussis Not Detected (Not Detect); Chlamydophila pneumoniae Not Detected (Not Detect); Coronavirus 229E Not Detected (Not Detect); Coronavirus HKU1 Not Detected (Not Detect); Coronavirus NL63 Not Detected (Not Detect); Coronavirus OC43 Not Detected (Not Detect); Human Metapneumovirus Not Detected (Not Detect); Human Rhinovirus/Enterovirus Not Detected (Not Detect); Influenza A Subtype 2009 H1 Not Detected (Not Detect); Influenza B Not Detected (Not Detect); Mycoplasma pneumoniae Not Detected (Not Detect); Parainfluenza Virus 1 Not Detected (Not Detect); Parainfluenza Virus 2 Not Detected (Not Detect); Parainfluenza Virus 3 Not Detected (Not Detect); Parainfluenza Virus 4 Not Detected (Not Detect); Respiratory Syncytial Virus Not Detected (Not Detect); SARS-CoV-2 Not Detected (Not Detect)
[2022-08-26 12:23] VITALS: BP 184/71; PULSE 85; TEMP 98.6; O2SAT 98
== END 2022-08-26 12:45 | DRG 720 ==
LOC: 2NNU → SUATTDRO 22:50 → 2NNU 08-24 16:34 → 2ANU 08-25 16:35
PROVIDERS: ADMIT Pharmacist; ATTEND Hospitalist